=== PATIENT | female | born 1945 | race Caucasian/White ===

== ENCOUNTER 2018-11-26 06:50 | Day surgery (SDC) | payer MEDICARE, OTHER ==
[~2018-11-26] VITALS: Ht 160 cm; Wt 65.8 kg
[~2018-11-26 06:50] MED LIST: AMLODIPINE BESY10 MG PO; FISH OIL 1,0001 EAC2 NG; K-TAB ER20 MEQ PO; METOPROLOL SUC200 MG PO; TRIAMTERENE-HC1 EAC3 PO; VITAMIN D1000 UNIT PO
--- NOTE | 2018-11-26 08:18 | NUR ---
PT IS SALINE LOCKED AND TAKEN TO [facility] FOR IMAGING.
--- NOTE | 2018-11-26 11:06 | NUR ---
PATIENT RETURNS FROM IMAGING. IV RECONNECTED. FAMILY @ BS. CALL LIGHT W/IN REACH.
--- NOTE | 2018-11-26 14:15 | NUR ---
11/26/18 1414 Kait Umanzor 1407- PT ARRIVES TO PACU FROM OR ON 6 L VIA MASK WITH SATS 100%. PT REACTIVE TO VERBAL STIMULUS. JESSICA DRAIN IN PLACE. SURGICAL DRESSING C/D/I ON LEFT BREAST/CHEST. RESP EVEN AND UNLABORED. 1410- VSS. RESP EVEN AND UNLABORED. SATS 100% ON 6 L VIA MASK.
[2018-11-26] MEDS ORDERED: MAPAP325 MG PO (14:41)
[2018-11-26] MEDS ORDERED: OXYCODON-ACETA1 EAC2 PO (14:41)
[2018-11-26] MEDS ORDERED: IBUPROFEN600 MG PO (14:42)
--- NOTE | 2018-11-26 14:58 | NUR ---
PT IS BACK TO DS FROM PACU. SHE IS DROWSY, BUT IS QUICK TO RESPOND WHEN SPOKEN TOO. FAMILY IS AT THE BEDSIDE. CALL LIGHT WITHIN REACH. PT DENIES ANY PAIN/NAUSEA AT THIS TIME. NO ADDITIONAL NEEDS AT THIS TIME.
--- NOTE | 2018-11-26 16:10 | NUR ---
1605: PATIENT ASSISTED OOB. PATIENT C/O SIGNIFICANT DIZZINESS. PATIENT SAT BACK DOWN ON EDGE OF BED AND WAITED FOR DIZZINESS TO IMPROVE. PATIENT STOOD AT BEDSIDE AGAIN AND CONTINUED TO HAVE SIGNIFICANT DIZZINESS. PATIENT UNSURE IF SHE COULD MAKE IT TO BATHROOM. PATIENT LAID BACK DOWN IN BED. BEDSIDE COMMODE BROUGHT TO PATIENT'S ROOM. PATIENT ASSISTED TO COMMODE. VOID WITHOUT DIFFICULTY. PATIENT ASSISTED BACK TO BED. SCDs REPLACED. CALL LIGHT WITHIN REACH. FAMILY AT BEDSIDE.
--- NOTE | 2018-11-26 16:53 | NUR ---
PT REPORTS THE PAIN IN HER BREAST IS MORE OF A BURING SENSATION, THE THROBBING HAS IMPROVED. FAMILY IS AT THE BEDSIDE. CALL LIGHT WITHIN REACH. NO ADDITIONAL NEEDS AT THIS TIME.
--- NOTE | 2018-11-26 17:53 | NUR ---
PT INDICATES THAT SHE WOULD LIKE TO GO HOME. SHE IS ASSISTED IN DRESSING, PT AND HER DAUGHTER ARE SHOWN HOW TO EMPTY THE DRAIN. PT IS GIVEN VERBAL DC INSTRUCTIONS WITH DAUGHTER AND PRESENT. ALL 3 VERBAL UNDERSTANDING. BRIAN TOTH RN TAKES THE PT OUT IN A WHEELCHAIR.
--- NOTE | 2018-11-27 12:09 | OR ---
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 POSTOPERATIVE DIAGNOSES: 1. 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 2. [place] lymph node biopsy x2, negative for metastatic carcinoma. PROCEDURES PERFORMED: 1. Injection of methylene blue for sentinel lymph node identification. 2. Left deep axillary lymph node biopsies x2. 3. Complex left partial mastectomy with preoperative marker ( ultrasound guided) 4. Oncoplastic closure including partial excision of redundant skin. 5. Excision (separate incision) of additional breast cancer ( medial breast.) ANESTHESIA: General LMA; Praneeth Casey CRNA. DRAIN: 7 mm Dusty. INDICATION: This 73-year-old white woman is a patient of Dr. Tita Kahn, and has been diagnosed with infiltrating ductal carcinoma of the left breast. She has a rather extensive family history of breast cancer in several family members and has been tested for BRCA1 and 2 genetic mutations. She is found to be negative in that regard. Biopsies confirmed infiltrating ductal carcinoma in three separate areas, all in the same quadrant of the left medial inferior aspect. The patient has a strong desire to maintain a breast conservation approach if possible. We have discussed the various approaches to management of her breast cancer and they are at least three distinct lesions all in the same quadrant for which quadrantectomy is an option anticipating postoperative radiation therapy as well. She has no clinical evidence of metastatic disease. The lesions in question are generally palpable, though the lesion in the medial aspect is marked with a clip and is not palpable. Preoperative ultrasonographic interrogation of breast by the radiologist is allowed for delineation of the site in question with skin marker. Electronically Signed By: SHONDA REID MD 11/27/18 1209 PATIENT NAME: JACKIE GALLO OPERATIVE REPORT DATE OF : 41 REPORT #: [id number] PHYSICIAN: SHONDA REID MD PCP: TITA KAHN MD REPORT IS CONFIDENTIAL AND NOT TO BE RELEASED WITHOUT AUTHORIZATION [facility] [address], [place] [address] Signed The patient is to undergo a partial mastectomy, sentinel lymph node biopsy, and excision of additional lesion in the same quadrant of the breast and oncoplastic closure as able. The patient and her family understand the risks of bleeding, infection, recurrent disease, failure to cure the problem, need for additional treatment and cosmetic deformity. Understanding this they wished to proceed. FINDINGS: [place] lymph node uptake in the left axilla was good. Two sentinel lymph nodes were excised, one that incorporated both radionuclide and dye, the other with radionuclide only. Frozen pathology by Dr. Kolton Treviño showed them to have no evidence of metastatic disease. As regard to the breast, the areas in question were in the medial inferior aspect. Wide local excision was undertaken of the breast tissue near the areola incorporating the palpable lesions, which were marked with sutures for pathologic identification. The excised specimens were radiographed and evaluated by ultrasound confirming the suspicious nodules to be within the resected specimen. Redundant skin required excision for oncoplastic closure and parenchymal reorganization to close a sizable defect. Through a separate incision, the lesion medially that was designated by a clip was excised widely as well and confirmed in specimen radiograph as well. DESCRIPTION OF PROCEDURE: The patient was brought to the operating room having been received from the radiology suite for sentinel lymph node identification. She was given a general LMA type anesthetic. Preoperative antibiotics were given and sequential compression device stockings used. Heparin was administered subcutaneously. Injection with 1 mL of methylene blue in the left periareolar area was undertaken. The breast, chest wall, and axilla were then prepared with spray of Betadine solution and draped sterilely. Interrogation of the left axilla with the C-Trak gamma probe showed high uptake in the area just lateral to the pectoralis muscle high in the axilla. A transverse incision was made directly over the area. Dissection carried through the subcutaneous tissue in the standard way using electrocautery and blunt dissection. Using the gamma probe as a guide, dissection was carried down to the chest wall, where a dye avid lymph node was identified. This was dissected free and small clips were used as necessary for lymphatic connections to it. It was excised and found to be "hot" on the gamma probe and with good uptake of dye. This was passed as sentinel lymph node #1. Subsequently it was reported as negative for metastatic disease. Additional interrogation of the axilla showed another lymph node, this one slightly larger at about 2 cm. It had no dye uptake but was strongly avid for radionuclide. It too was excised in a similar way and ultimately found to be negative on frozen pathology for metastatic disease. The biopsy Electronically Signed By: SHONDA REID MD 11/27/18 1209 PATIENT NAME: JACKIE GALLO OPERATIVE REPORT DATE OF : 41 REPORT #: [id number] PHYSICIAN: SHONDA REID MD PCP: TITA KAHN MD REPORT IS CONFIDENTIAL AND NOT TO BE RELEASED WITHOUT AUTHORIZATION [address] [address] Signed cavity was packed with gauze and attention turned towards excision of the primary tumor. A palpable lesion was noted a few centimeters from the areolar margin and the area in question had been marked by the radiologist preoperatively with ultrasonographic guidance. I witnessed this in the ultrasound suite as well. A palpable lesion was noted just at the edge of the areolar margin as well. The more medial lesion was marked with a marker, but had no palpable mass in that area. A curvilinear incision was made on the circumareolar margin medially and a flap elevated in the medial direction. Immediately noted was a lesion in question beneath the areolar area or at least on the edge of the areola and this was marked with silk suture. Special care was taken to maintain a negative margin on this excision. Dissection was carried medially beneath the areola and superiorly, inferiorly, and ultimately deeply. Dissection was carried towards the 2nd palpable lesion, which was a few centimeters away. This was larger and looked somewhat violaceous upon elevating the skin flap. The skin was elevated and included dermis and epidermis only so as to maintain a negative margin. I have no question that the margin is negative though it certainly would be closed based on gross inspection. Wide deep excision was undertaken of the breast parenchyma. Irrigation was undertaken. Hemostasis was assured with electrocautery. Several areas had been secured with 0 Vicryl ties. Parenchymal reapproximation was deemed advisable with possible stones to provide an oncoplastic closure. Using 2-0 Vicryl, medial and lateral parenchymal pedicles were reapproximated. Given her redundant breast tissue and so forth, more extensive mobilization was not required. This did necessitate excision of a fair amount of skin, which had overlaying the excision to begin with. This allowed for deep dermal reapproximation of the skin edges with extension of the incision medially. Though there does remain some cosmetic deformity, it is far better than the resultant defect noted previously. The medial lesion, which was nonpalpable but noted to be marked by a clip and designated by a marker, was then incised through a separate incision. Dissection was carried through the parenchyma with wide resection undertaken. Specimen was sent for specimen radiograph confirming that the clip was in the center portion of the excised tissue. The parenchyma was reapproximated with interrupted 2-0 Vicryl and skin closed with running subcuticular 3-0 Vicryl. Skin was closed in the largest resection of the central medial breast with 3-0 Vicryl as well. Steri-Strips were applied to all of the wounds. A radiologist confirmed that all of the solid lesions from the ultrasound were included in the excised specimen and the parenchyma that had been marked was also excised. Attention was turned towards the axilla. There was no sign of bleeding. The wound was closed in layers with interrupted 2-0 Vicryl and Steri-Strips were applied there as well. Mepilex silver sponge dressing was applied as was an OpSite. The patient was Electronically Signed By: SHONDA REID MD 11/27/18 1209 PATIENT NAME: JACKIE GALLO OPERATIVE REPORT DATE OF : 41 REPORT #: [id number] PHYSICIAN: SHONDA REID MD PCP: TITA KAHN MD REPORT IS CONFIDENTIAL AND NOT TO BE RELEASED WITHOUT AUTHORIZATION [address] [place] [address] Signed ultimately extubated and transported to recovery in good condition. Not mentioned previously was placement of a 7 mm drain through an inframammary incision to drain the largest partial mastectomy wound deeply. It seem not to have too much drainage at that point. MD TRANG Gordillo/JOSEPHL /[id number] cc: MD Dr. Dariel Tejeda Copies: TITA KAHN MD ~ Electronically Signed By: SHONDA REID MD 11/27/18 1209 PATIENT NAME: SABINOJACKIE JACOBS OPERATIVE REPORT DATE OF : 41 REPORT #: [id number] PHYSICIAN: SHONDA REID MD PCP: TITA KAHN MD REPORT IS CONFIDENTIAL AND NOT TO BE RELEASED WITHOUT AUTHORIZATION
== END 2018-11-26 17:50 | disposition home or self-care (01) ==
LOC: DS 06:50 → NUC 08:00 → DS 08:00 → EDSTATUS 08:00 → DS 17:50
PROVIDERS: Surgery
PROC: 0HBU0ZZ Excision of Left Breast, Open Approach (ICD-10-PCS; principal; 2018-11-26 09:30)
PROC: 07B60ZX Excision of Left Axillary Lymphatic, Open Approach, Diagnostic (ICD-10-PCS; 2018-11-26 09:30)
DX: C50.312 Malignant neoplasm of lower-inner quadrant of left female breast (principal); C50.812 Malignant neoplasm of overlapping sites of left female breast; I10 Essential (primary) hypertension; Z88.0 Allergy status to penicillin; Z91.040 Latex allergy status; Z79.899 Other long term (current) drug therapy
CPT/HCPCS: 00404; 76098; 76642; 78195; 88305; 88307; 88341; 88342; 88377; A9541; J0131; J1100; J1644; J2405; J2704; J2765; J3010; J7120

== ENCOUNTER 2020-12-16 10:04 | Inpatient (IN) | payer MEDICARE, OTHER ==
[~2020-12-16] VITALS: Ht 160 cm; Wt 67.6 kg
[~2020-12-16 10:04] MED LIST changes: -FISH OIL 1,0001 EAC2 NG; +FISH OIL 1,0001 EAC2 PO; +IBUPROFEN600 MG PO; -K-TAB ER20 MEQ PO; +MAPAP325 MG PO; +OXYCODON-ACETA1 EAC2 PO; +POTASSIUM GLUCO99 MG PO; -VITAMIN D1000 UNIT PO; +VITAMIN D325 MCG PO
[2020-12-16] MEDS ORDERED: GLIPIZIDE ER2.5 MG PO (10:38)
[2020-12-16] MEDS ORDERED: KEFLEX750 MG PO (10:39)
[2020-12-16] MEDS ORDERED: PYRIDIUM200 MG PO (10:40)
--- NOTE | 2020-12-16 14:25 | NUR ---
REPORT RECIEVED FROM SAUNDRA WILSON NURSE. COVID TEST RESULTS ARE PENDING.
[2020-12-16] MEDS ORDERED: CEPHALEXIN500 MG PO (14:29)
[2020-12-16] MEDS ORDERED: AMLODIPINE BESYL5 MG PO (14:31)
[2020-12-16] MEDS ORDERED: TRIAMTERENE-HC1 EAC1 PO (14:32)
--- NOTE | 2020-12-16 15:15 | NUR ---
PATIENT ADMISSION STARTED. PATIENT RESTING IN BED, DENIES PAIN OR NAUSEA, HAS ORDERED DINNER. SPOUSE IN ROOM WITH PATIENT.
--- NOTE | 2020-12-16 15:59 | NUR ---
ASSESSMENT COMPLETED. PATIENT SITTING UP IN BED WITH SPOUSE AT THE BEDSIDE. PATIENT DENIES PAIN AT THIS TIME. WARM BLANKET GIVEN. 0.9 RUNNING 100ML/HR IN RIGHT FOREARM IV SITE. CALL LIGHT WITHIN REACH. PATIENT DENIES FURTHER NEEDS AT THIS TIME.
--- NOTE | 2020-12-16 16:01 | NUR ---
PATIENT WALKING IN HALLS WITH PHYSICAL THERAPY.
[2020-12-16] MEDS ORDERED: [UNRECOGNIZED DRUG - OTHER] PO (16:44)
[2020-12-16] MEDS ORDERED: HYLAND'S LEG CRAMPS PO (16:44)
--- NOTE | 2020-12-16 16:45 | NUR ---
MED REC COMPLETE
--- NOTE | 2020-12-16 17:35 | NUR ---
Sitting up in bed. Has voided X1. Denies other needs at this time. Call light in reach, bed rails up X2.
--- NOTE | 2020-12-16 17:57 | NUR ---
Flu swab collected and sent to lab. TOlerated well.
--- NOTE | 2020-12-16 18:18 | NUR ---
Patient admitted from the emergency department around 1530. Worked with physical therapy and has been cleared to be independent in the room, SBA when walking in the halls. Last glucose check was 128, no insulin needed given. Has 0.9 @100ml/hr through IV site in right forearm.
--- NOTE | 2020-12-16 19:10 | NUR ---
SHIFT REPORT RECEIVED TAMMIE MARX RN. PT RESTING IN BED, WATCHING TV. NO NEEDS AT THIS TIME. CALL LIGHT IN REACH.
--- NOTE | 2020-12-16 20:55 | NUR ---
IN TO GET VITALS, PT RECENTLY VOIDED, FRESH ICE WATER PROVIDED AT THIS TIME, NO FURTHER NEEDS AT THIS TIME
--- NOTE | 2020-12-16 21:07 | NUR ---
ASSESSMENT COMPLETED. CBG 111, NO COVERAGE REQUIRED. GCS 15, A&0 X4. LUNGS CLEAR, HEART TONES REGULAR. ABD SOFT, NONTENDER, PT STATES NORMAL, BOWEL TONES ACTIVE. CMS INTACT. IV WNL, CDI, FLUSHED WELL. SCHEDULED MEDS PROVIDED. PT DENIES PAIN, BURNING OR URGENCY WITH URINATION AT THIS TIME. URINE IS SUMEET AND CLEAR. NO OTHER NEEDS AT THIS TIME. CALL LIGHT IN REACH.
--- NOTE | 2020-12-16 22:46 | NUR ---
SCHEDULED MED PROVIDED. PT TOLERATED WELL. SNACK PROVIDED. NO OTHER NEEDS AT THIS TIME. CALL LIGHT IN REACH.
--- NOTE | 2020-12-17 00:05 | NUR ---
NEW BAG OF IV FLUIDS PROVIDED. NO OTHER NEEDS AT THIS TIME. CALL LIGHT IN REACH.
--- NOTE | 2020-12-17 01:37 | NUR ---
PT RESTING IN BED, EYES CLOSED. RR EVEN, UNLABORED. CALL LIGHT IN REACH.
--- NOTE | 2020-12-17 02:08 | NUR ---
ASSESSMENT, VS AND I&O COMPLETED. GCS 15, A&O X4. LUNGS CLEAR, HEART TONES REGULAR. ABD SOFT, NONTENDER, PT STATES NORMAL, BOWEL TONES ACTIVE. CMS INTACT. NO EDEMA NOTED. PT STATES SHE FEELS "MORE MENTALLY CLEAR". NO OTHER NEEDS AT THIS TIME. CALL LIGHT IN REACH.
--- NOTE | 2020-12-17 05:40 | NUR ---
PT UP TO BR AND BACK TO BED. VS AND I&O COMPLETED. IV WNL, INFUSING PER ORDER. NO OTHER NEEDS AT THIS TIME. CALL LIGHT IN REACH.
--- NOTE | 2020-12-17 07:05 | NUR ---
Report from Michelle Elliott RN. Patient lying on right side, eyes closed with respirations even and unlabored. Allowed to rest. Call light in reach, bed rails up X2.
--- NOTE | 2020-12-17 07:36 | NUR ---
REPORT RECIEVED FROM LOU GILLIAM. PATIENT APPEARS ASLEEP IN BED. CALL LIGHT WITHIN REACH. WILL CONTINUE TO MONITOR.
--- NOTE | 2020-12-17 08:51 | NUR ---
Assessment completed. Sitting up in recliner. Ate breakfast without difficulty. Denies pain. States she is feeling better. AM medications administered. Takes without difficulty. Call light in reach, bed rails up X2.
--- NOTE | 2020-12-17 09:11 | NUR ---
ASSESSMENT COMPLETED. PATIENT SITTING UP IN CHAIR EATING BREAKFAST. DENIES PAIN OR TROUBLE WITH URINATION. STABLE WHEN UP. MORNING MEDICATIONS ADMINISTERED. CALL LIGHT AND PERSONAL BELONGINGS WITHIN REACH. DENIES FURTHER NEEDS AT THIS TIME.
--- NOTE | 2020-12-17 09:48 | NUR ---
PATIENT AWAKE IN CHAIR, VITALS AND I&OS CHARTED. CALLLIGHT IN REACH
--- NOTE | 2020-12-17 09:58 | NUR ---
PATIENT POTASSIUM LEVEL STILL SLIGHTLY DECREASED. PO POTASSIUM TABLETS ORDERED AND ADMINISTERED. PATIENT SITTING UP IN THE CHAIR WITH PERSONAL BELONGINGS WITHIN REACH. CALL LIGHT WITHIN REACH. DENIES NEEDS AT THIS TIME.
--- NOTE | 2020-12-17 10:57 | NUR ---
PATIENT SITTING UP IN CHAIR WITH SPOUSE AT THE BEDSIDE. CALL LIGHT WITHIN REACH. PATIENT DENIES FURTHER NEEDS AT THIS TIME.
--- NOTE | 2020-12-17 11:38 | NUR ---
Sitting in bed, visiting with spouse. Denies needs. GLucose obtained. Call light in reach, bed rails up X2.
[2020-12-17] MEDS ORDERED: METOPROLOL SUCC50 MG PO (12:29)
[2020-12-17] MEDS ORDERED: ONDANSETRON ODT8 MG PO (12:30)
== END 2020-12-17 13:54 | disposition home or self-care (01) | DRG 641 ==
LOC: ED 10:04 → MS 14:16
PROVIDERS: ADMIT Student in an Organized Health Care Education/Training Program; ATTEND Student in an Organized Health Care Education/Training Program
DX: E87.1 Hypo-osmolality and hyponatremia (principal); Z20.822 Contact with and (suspected) exposure to COVID-19; I10 Essential (primary) hypertension; E11.9 Type 2 diabetes mellitus without complications; R30.0 Dysuria; R00.1 Bradycardia, unspecified; T50.2X5A Adverse effect of carbonic-anhydrase inhibitors, benzothiadiazides and other diuretics, initial encounter; Z79.899 Other long term (current) drug therapy; Z79.84 Long term (current) use of oral hypoglycemic drugs; Z88.1 Allergy status to other antibiotic agents; Z88.0 Allergy status to penicillin; Z91.040 Latex allergy status
CPT/HCPCS: 36415; 80048; 80053; 81001; 83735; 84295; 84300; 85025; 85651; 87502; 96374; 96375; 97161; 97165; 99285-25; C9803; J1650; J2405; J3480; J7030; U0003

== ENCOUNTER 2021-06-02 05:55 | Observation (INO) | payer MEDICARE, OTHER ==
[~2021-06-02] VITALS: Ht 160 cm; Wt 62.0 kg
[~2021-06-02 05:55] MED LIST changes: +AMLODIPINE BESYL5 MG PO; +CEPHALEXIN500 MG PO; +GLIPIZIDE ER2.5 MG PO; +HYLAND'S LEG CRAMPS PO; +KEFLEX750 MG PO; +METOPROLOL SUCC50 MG PO; +ONDANSETRON ODT8 MG PO; +PYRIDIUM200 MG PO; +TRIAMTERENE-HC1 EAC1 PO; +[UNRECOGNIZED DRUG - OTHER] PO
[2021-06-02] MEDS ORDERED: NORVASC5 MG PO (06:22)
--- NOTE | 2021-06-02 09:35 | NUR ---
06/02/21 0935 Nilda Sweeney 0931- PT ARRIVES TO PACU NONAROUSABLE TO NOXIOUS STIMULI WITH OPA IN PLACE. RESP EVEN AND UNLABORED. OXYGEN SAT HIGH 90'S TO 100% ON 10L VIA MASK.
--- NOTE | 2021-06-02 10:37 | NUR ---
LE 1018 PT ARRIVED BACK TO ROOM #5 DROWSY ON STRETCHER. EASILY AROUSES TO VERBAL STIMULATION, APPROPRIATELY ANSWERS COMMANDS. PT DENIES PAIN OR NAUSEA. CALL LIGHT WITHIN REACH.
--- NOTE | 2021-06-02 12:01 | NUR ---
PT UP TO BEDSIDE COMMODE WITH 2 RN ASSIST. PROVIDED PT WITH WATER AND APPLESAUCE. PT APPEARS COMFORTABLE IN BED, DENIES PAIN OR NAUSEA. PT STATES SHE FEELS DIZZINESS WITH MOVEMENT BUT STATES IT HAPPENS ALSO AT HOME. SPOUSE AT BEDSIDE. CALL LIGHT WITHIN REACH.
--- NOTE | 2021-06-02 12:53 | NUR ---
PT APPEARED COMFORTABLE IN BED. SHE DENIES PAIN AND NAUSEA. JACQUES FROM CANCER CLINIC AT BEDSIDE FITTING PATIENT FOR A DEEPA. IN ROOM WITH PATIENT. CALL LIGHT WITHIN REACH.
--- NOTE | 2021-06-02 13:30 | NUR ---
PT TRANSFERED TO ROOM 107. PT TRANSFERED HERSELF TO MED SURG STRETCHER. TOOK ALL PATIENT'S BELONGINGS TO ROOM. STAYED WITH PATIENT. GAVE BEDSIDE REPORT. LOOKED AT PATIENT'S DRESSING WITH MED SURG NURSE. DRESSING WAS CLEAN, DRY, AND INTACT.
--- NOTE | 2021-06-02 14:30 | NUR ---
PT. ARRIVED VIA STRETCHER AND REPORT RECEIVED FROM CHARGE NURSE. PT. IS ALERT AND ORIENTED. PRESENT. IV SITE WNL AND FLUSHES WELL. CPOX IN PLACE AND 02 SAT IS 100%. LEFT CHEST DRESSING IS DRY AND INTACT WITH SMALL AMOUNT OF SANGUINOUS SHADOWING. JESSICA DRAINS X2 ARE PATENT AND DRAINING SANGUINOUS. PT. VOIDING AND AMBULATING WITH SBA. SCDS IN PLACE AND PT. TOLERATING SMALL SIPS OF WATER. LEFT RESTING WITH CALL LIGHT IN REACH.
--- NOTE | 2021-06-02 15:44 | NUR ---
ROUNDING ON PT. SHE DENIES PAIN. 02 SAT. IS 98% ON RA AND HR IS 58. PT. BROUGHT WARM BLANKET. TOLERATING PO INTAKE WELL. PT. LEFT RESTING WITH CALL LIGHT IN REACH.
--- NOTE | 2021-06-02 15:50 | NUR ---
Pt lives in [place] in a 1 story home with her spouse, Hernán. She does not use DME, but has a walking stick. She has a supportive famil y, daughters plan to stay with her and her retired . Financial ly stable. Denies needs to go home and plan on dc to home when clear- ed by Dr. Guzman to assist.
--- NOTE | 2021-06-02 17:05 | NUR ---
PT. UP TO THE BATHROOM WITH SBA AND TOLERATED WELL. PT. DENIES FURTHER NEED.
--- NOTE | 2021-06-02 19:20 | NUR ---
SHIFT REPORT RECEIVED FROM DAYSHIFT RN PAUL AT BEDSIDE. pt AWAKE AND RESTING IN BED, ON RA. CPOX IN PLACE, SPO2 SAT 90'S, HR WNL. pt UP SBA TO VOID AND BACK TO BED. ACTICOAT IN PLACE OVER LEFT CHEST, SCANT SHADOWING IN PLACE. SEROSANGINEOUS IN COLOR. JESSICA DRAINS X2 ALSO IN PLACE, SHADOWING EXPANDED BEYOND CURRENT OUTLINE, WILL CONTINUE TO MONITOR. NO NEEDS, AT BEDSIDE. CALL LIGHT IN REACH.
--- NOTE | 2021-06-02 22:15 | NUR ---
ASSESSMENT COMPLETE, SCHEDULED MEDS GIVEN. pt DENIES PAIN AND NAUSEA. IV FLUIDS INFUSING PER MD ORDERS. IV SITE WNL AND FLUSHES EASILY. NO CHANGE TO ACTICOAT OR JESSICA DRAIN DRESSINGS, WILL MONITOR. DR REID UPDATED ON pt AND JESSICA DRAIN X2 OUTPUTS, NO NEW ORDERS. WILL CONTINUE TO MONITOR. IN ROOM, CALL LIGHT IN REACH.
--- NOTE | 2021-06-03 00:11 | NUR ---
ROUNDED ON pt, pt AWAKE AND RESTING IN BED. ON RA, RR EVEN AND UNLABORED, HELMET HAT SWEATBAND PUNCHER ZACKARY IN ROOM AND ASSISTING pt TO BATHROOM. NO NEEDS VERBALIZED AT THIS TIME.
--- NOTE | 2021-06-03 00:18 | NUR ---
PT IS UP TO VOID AT THIS TIME, THEN BACK TO BED, SBA WITH IV POLE, NO FURTHER NEEDS AT THIS TIME
--- NOTE | 2021-06-03 01:51 | NUR ---
ASSESSMENT COMPLETE, NO NEW CHANGES OR CONCERNS. VSS, pt ON RA. CPOX IN PLACE, pt DENIES PAIN AND NAUSEA. IV FLUIDS INFUSING PER MD ORDERS, IV SITE WNL. pt DENIES ADDITIONAL NEEDS, CALL LIGHT IN REACH. NO CHANGE TO DRESSING OR JESSICA DRESSING, WILL CONTINUE TO MONITOR. pt EDUCATED ON JESSICA DRAIN EMPTYING AND CARE, WILL CONTINUE TO EDUCATE.
--- NOTE | 2021-06-03 02:00 | NUR ---
VITALS TAKEN, I&Os DONE, PT UP TO THE TOILET SBA, BACK TO BED, SCDS BAKC IN PLACE, ICE WATER FILLED, NO FURTHER NEEDS
--- NOTE | 2021-06-03 06:15 | NUR ---
PTs CONTACTING STAFF, THIS ROTARY ENGINE ASSEMBLER FOUND PT ON TOILET, SPOTS OF URINE ON THE FLOOR, PT IS CONFUSED, RN INFORMED RIGHT AWAY, GOT PT NEW MESH UNDERPANTS AND DANIA PAD, PT BACK TO BED, VITALS DONE AT THIS TIME, FRESH ICE WATER GIVEN, PT TEARFUL, TISSUES PROVIDED, NO FURTHER NEEDS AT THIS TIME
--- NOTE | 2021-06-03 06:24 | NUR ---
INFORMED BY FREEDOM RAYMUNDO, pt REPORTS FEELING CONFUSED. pt FOUND IN BATHROOM AND VOIDING. PER , pt WOKE UP CONFUSED AND WAS TRYING TO VOID IN TIOLET. pt ASSESSED, pt FULLY ORIENTED AT THIS TIME. pt STATES, "I JUST WOKE UP AND HAD TO GO PEE". pt BACK TO BED, PRN ACCUCHECK RESULT OF 173. PRN NAUSEA MEDS GIVEN, SEE EMAR FOR NAUSEA. PRN TYLENOL HELD D/T NAUSEA, pt DENIES PAIN. NO NEW CHANGES TO JESSICA DRAIN DRESSING OR ACTICOAT DRESSING. HYPO SPLASHERLOU DOYLE.
--- NOTE | 2021-06-03 06:50 | NUR ---
DR REID UPDATED ON pt'S RECENT CONFUSION, INCISION DRESSINGS, AND BLOOD SUGARS DURING THE NIGHT. NO NEW ORDERS AT THIS TIME.
--- NOTE | 2021-06-03 08:30 | NUR ---
REPORT RECEIVED FROM NIGHT RN AND PT. CARE RESUMED. PT. IS ALERT AND ORIENTED. SHE APPEARS ANXIOUS AND STATES SHE WAS COFUSED LAST NIGHT AND IT SCARED HER. PT. REASSURED. JESSICA #1 GAUZE DRESSING HAS SHADOWING THROUGHOUT. JESSICA SITES X2 ARE PATENT AND DRAINING SERISANGUINOUS FLUID. ACTICOAT DRESSING HAS SMALL AMOUNT OF SHADOWING THAT IS UNCHANGED SINCE YESTERDAY. IV SITE WNL AND FLUSHES WELL. PT. ENCOURAGED TO WALK AFTER BREAKFAST. PT. LEFT RESTING WITH CALL LIGHT IN REACH.
[2021-06-03] MEDS ORDERED: GLIPIZIDE ER2.5 MG PO (10:16)
[2021-06-03] MEDS ORDERED: ACETAMINOPHEN500 MG PO (10:25)
[2021-06-03] MEDS ORDERED: MOTRIN IB200 MG PO (10:26)
[2021-06-03] MEDS ORDERED: ENDOCET 7.5-321 EACH PO (10:27)
--- NOTE | 2021-06-03 10:35 | OR ---
[facility] [address] [place], [place] [address] Signed DATE OF OPERATION: 06/02/2021 SURGEON: Shonda Reid MD PREOPERATIVE DIAGNOSIS: Recurrent left breast carcinoma. POSTOPERATIVE DIAGNOSIS: Recurrent left breast carcinoma. PROCEDURES: 1. Injection of methylene blue for sentinel lymph node identification. 2. Left modified radical mastectomy (total mastectomy with axillary dissection). ANESTHESIA: General LMA; Shonda Esteban CRNA INDICATIONS: This is a 76-year-old white woman is a patient of Dr. Tita Kahn. In 2019, she underwent excision in the left medial breast of an infiltrating ductal carcinoma with separate foci, but in the same quadrant, which included sentinel lymph node biopsy. Pathology showed infiltrating ductal carcinoma with at least 2 lesions and some ductal carcinoma in situ also identified, but with negative margins. The lesion was ER/NJ positive. 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 She has an extensive family history of breast cancer including their mother, 2 sisters, and a maternal aunt. BRCA testing was obtained that was negative. The patient had agreed to undergo postoperative radiation therapy as part of her initial treatment, but later changed her mind and would not do so. She additionally declined antiestrogen therapy as outlined by Dr. Ceja. In the meantime, she has since developed abnormalities of the left breast for which biopsies have confirmed recurrent infiltrating ductal carcinoma. Appears to be two lesions and possibly more. Two lesions were biopsied and they were in separate quadrants of the breast. On that basis, I have recommended left total mastectomy with repeat sentinel lymph node biopsy, possibly axillary dissection if 2 more sentinel lymph nodes were found to be positive or if sentinel lymph node identification, the identification cannot be assured. The patient understands the risks of bleeding, infection, cosmetic deformity, arm swelling, and other unforeseen complications related to surgery and wished to proceed. Electronically Signed By: SHONDA REID MD 06/03/21 1035 PATIENT NAME: JACKIE GALLO OPERATIVE REPORT DATE OF : 41 REPORT #: [id number] PHYSICIAN: SHONDA REID MD PCP: TITA KAHN MD REPORT IS CONFIDENTIAL AND NOT TO BE RELEASED WITHOUT AUTHORIZATION [facility] [address] [place], [place] [address] Signed FINDINGS: Upon injection of the methylene blue dye in the subepithelial space in the periareolar area, there was marked good arborization of the subdermal lymphatics. This is often indicative of lymphatic congestion. Notably, axillary inspection showed no sign of uptake of methylene blue dye to axillary lymph nodes and on that basis, completion axillary dissection was undertaken. DESCRIPTION OF PROCEDURE: The patient was brought to the operating room, given a general anesthetic by LMA technique. Preoperative antibiotic Ancef was given. Sequential compression device stockings were used and heparin subcutaneously administered. 2 mL of methylene blue dye was injected in the subepithelial space in the upper outer aspect of the left areola. Marked arborization of the dye within the lymphatics was noted, essentially taking up most of the central breast. Photograph was taken. The previous scar from prior surgery was in the medial aspect of the left breast. The chest, breast, and upper axillary area were prepared with a Betadine based solution and draped sterilely. A curvilinear incision was made including excision of the nipple-areolar complex. Superior and inferior flaps were developed sharply and with electrocautery. The breast was rather large in its extent. Once flaps were developed. The breast was excised in the medial to lateral direction using electrocautery. Larger perforating vessels were secured with stick tie sutures or clips as necessary. Upon approaching the lateral aspect of the pectoralis muscle, the clavipectoral fascia was incised. Meticulous dissection through the axillary area showed no evidence of uptake of methylene blue dye teniae axillary tissue. There was no sign of lymphatic trail or anything of that sort. Dissection was taken superiorly up to the extent of the axillary vein, maintaining an intention to provide excision of a sentinel lymph node or more and frozen pathology, but despite extensive efforts to do so, there was no such finding and no axillary lymph nodes with dye could be identified. There were several enlarged lymph nodes proper. They were not particularly hard, but enlarged nevertheless. On that basis, axillary dissection was undertaken. The extent of dissection was inferior to the subclavian vein lateral to the long thoracic neurovascular bundle and superficial to the thoracodorsal neurovascular bundle, excising the tissue in continuity with the breast tissue in the axillary tail of Aguirre. The axilla was marked with a single Vicryl suture. Dissection through the axillary tissue once excised continued to show no evidence of methylene blue uptake, but complete dissipation of the methylene blue in the subdermal space. I suspect lymphatic congestion was responsible for this finding. Irrigation was undertaken with sterile water in the chest wall and the axilla. There was no sign of untoward bleeding. Two separate stab incision 10 mm flat Dusty drains were placed beneath the flaps and one in the axilla. They were secured to the skin with nylon suture. The flaps were quite viable. The flaps were reapproximated with interrupted 2-0 Vicryl in deep dermal layer and a running subcuticular 3-0 Vicryl for the skin. Steri-Strips were applied as was an Electronically Signed By: SHONDA REID MD 06/03/21 1035 PATIENT NAME: JACKIE GALLO REYNALDO OPERATIVE REPORT DATE OF : 41 REPORT #: [id number] PHYSICIAN: SHONDA REID MD PCP: TITA KAHN MD REPORT IS CONFIDENTIAL AND NOT TO BE RELEASED WITHOUT AUTHORIZATION [facility] [address] [place] [id number] Signed Acticoat dressing. Gauze was applied to the exit sites of the drains, which were attached to bulb suction and OpSite used to secure the drains to the abdominal wall. Blood loss in aggregate was about 100 mL. Sponge, needle, and instrument counts reported as correct x3. MD TRANG Gordillo/MODL /[id number] cc: MD Andrews Tejeda MD Copies: TITA KAHN MD, ROBERT C MD ~ Electronically Signed By: SHONDA REID MD 06/03/21 1035 PATIENT NAME: SABINOJACKIE KIRBY OPERATIVE REPORT DATE OF : 41 REPORT #: [id number] PHYSICIAN: SHONDA REID MD PCP: TITA KAHN MD REPORT IS CONFIDENTIAL AND NOT TO BE RELEASED WITHOUT AUTHORIZATION
--- NOTE | 2021-06-03 11:42 | NUR ---
ALL DISCHARGE INSTRUCTIONS REVIEWED WITH PT. AND QUESTIONS ASNWERED. PT. DENIES PAIN AND VITALS STABLE. IV REMOVED BY CHARGE NURSE WITH CATH INTACT AND EDUCATION PROVIDED ON IV. LEFT VIA WHEELCHAIR WITH ALL BELONGINGS AND CHARGE NURSE.
--- NOTE | 2021-06-10 17:06 | PATH ---
[facility] [address] [facility] [place], [place] [address] Signed SPECIMEN(S): A LEFT BREAST AND AXILLARY CONTENTS SPECIMEN SOURCE: A. LEFT BREAST AND AXILLARY CONTENTS CLINICAL HISTORY: Left breast cancer FINAL PATHOLOGIC DIAGNOSIS: Breast and axillary contents, left, total mastectomy: - Mucinous carcinoma with the following features: - Tumor focality: Two foci of invasive carcinoma. - Tumor sites: - Focus 1: approximately 4 o'clock. - Focus 2: approximately 3 o'clock. - Histologic type: Mucinous carcinoma. - Histologic grade ([place] histologic score): - Glandular (acinar)/tubular differentiation: Score 3. - Nuclear pleomorphism: Score 2. - Mitotic rate: Score 1. - Overall grade: Grade 2 (total score 6 of 9). - Tumor size: - Focus 1: 15 x 14 x 9 mm. - Focus 2: 16 x 15 x 10 mm. - Ductal carcinoma in situ (DCIS): Present, negative for extensive intraductal component (EIC). - Architectural patterns: Cribriform and micropapillary. - Nuclear grade: Grade 3 (high). - Necrosis: Not identified. - Lobular carcinoma in situ (LCIS): Not identified. - Lymphovascular invasion: Not identified. - Dermal lymphovascular invasion: Not identified. - Microcalcifications: Present in non-neoplastic tissue. - Treatment effect in the breast: No known pre-surgical therapy. - Margins: - Invasive carcinoma: All margins negative for invasive carcinoma. - Greater than 10 mm from superior, inferior, and posterior margins. - Margin status for DCIS: All margins negative for DCIS. PATIENT NAME: JACKIE GALLO PATHOLOGY DATE OF : 41 REPORT #: [id number] PHYSICIAN: [employer] PATHOLOGY PCP: TITA HUBER MD REPORT IS CONFIDENTIAL AND NOT TO BE RELEASED WITHOUT AUTHORIZATION [facility] [address] [place], [place] [address] Signed - Greater than 10 mm from superior, inferior, and posterior margins. - Regional lymph nodes: Regional lymph nodes present (intrammary lymph nodes). - All lymph nodes negative for tumor. - Total number of lymph nodes examined: 2. - Additional findings: Background breast tissue with fibrocystic changes, biopsy site changes in both focus 1 and focus 2. - Breast biomarker studies: Please refer to previously performed studies ([id number]) which were reported as estrogen receptor positive, progesterone receptor positive, Ki-67 proliferation index 5%, and HER2 negative by IHC for both foci. - Pathologic stage classification (pTNM, AJCC 8th edition): mr pT1c pN0. COMMENT: As part of [facility] [employer]' Quality Improvement Program, this case was reviewed by another member of our pathology staff. NAL:cml:C1NR MICROSCOPIC EXAMINATION: Histologic sections of all submitted blocks are examined by light microscopy. A focus of sclerosing adenosis is seen adjacent to the nipple; the benign nature of this lesion is confirmed with retained myoepithelial cell staining with SMMHC and p63 (with appropriately staining controls). These findings, together with the gross examination, support the pathologic diagnosis. GROSS DESCRIPTION: The specimen, labeled "JM," and designated on the requisition "L breast + axillary contents; left breast CA - stitch bowman apex of axilla," is received in formalin and consists of a 1399 g, 24.9 x 22.7 x 6.2 cm mastectomy specimen with attached axillary tail. The specimen is oriented with a payan suture on the axillary tail. On the anterior surface of the specimen is a 22.8 x 10.7 cm payan skin ellipse with a centrally located, payan, 5.4 x 3.9 cm areola and a payan, sunken, 1.3 x 0.7 x 0.2 cm nipple. Just superior to the nipple is an ill-defined, 5.7 x 3.5 cm area of previous blue inking. Additionally the skin ellipse has a red, flat 0.3 x 0.3 cm lesion that is 1.6 cm from the nearest peripheral skin margin, superior. The specimen is inked as follows: Superior aspect of specimen = PATIENT NAME: JACKIE GALLO PATHOLOGY DATE OF : 41 REPORT #: [id number] PHYSICIAN: NAOMIE CAICEDO PCP: TITA HUBER MD REPORT IS CONFIDENTIAL AND NOT TO BE RELEASED WITHOUT AUTHORIZATION [address] [address] Signed blue; inferior aspect of the specimen = green; and posterior = black. The specimen is sectioned from lateral to medial into 20 slices to reveal two cavities containing gelatinous, payan to dark red material. The first cavity (slice 12) is 1.5 x 1.4 x 0.9 cm and has a silver, metallic ny shaped biopsy marker. The cavity is located at approximately the 4 o'clock position, 1.8 cm from the inferior margin, 3.5 cm from the deep margin, 3.7 cm from the skin, 4.6 cm from the nipple, and 9.6 cm from the superior margin. The second cavity (slice 13) is 1.6 x 1.5 x 1.0 cm and has a silver metallic biopsy marker. The cavity is located at approximately the 3 o'clock position, 2.7 cm from the deep margin, 2.7 cm from the inferior margin, 3.7 cm from the skin, 4.8 cm from the superior margin, and 5.3 cm from the nipple. The remaining parenchyma is comprised of payan-white fibroglandular and yellow fibrofatty tissue. Fibroglandular tissue comprises approximately 5% of the remaining parenchyma and has multiple granular areas. An additional discrete mass/lesion is not grossly identified. The specimen has multiple, focal areas of brown, somewhat fibrous tissue consistent with possible muscle attached to the deep surface. The possible muscle is grossly unremarkable. The lateral portion of the specimen is palpated for lymph nodes and no lymph nodes are grossly identified. Side Show Entertainer sections are submitted as follows: A1 red skin lesion A2 first cavity biopsy clip (slice 12) A3-A5 nearest inferior margin to first cavity (slice 12) A6 nearest skin to first cavity (slice 12) A7 nearest deep margin to first cavity (slice 12) A8 nearest superior margin to first cavity (slice 12) A9 second cavity biopsy clip (slice 13) A10 second cavity (slice 13) A11 nearest deep margin to second cavity (slice 13) A12 nearest inferior margin to second cavity (slice 13) A13 nearest superior margin to second cavity (slice 13) A14 possible muscle nearest both cavities (slice 11 and 12) A15 nipple and areolar complex (slice 11) A16-A17 granular fibroglandular area (slice 9 and slice 11 respectively) A18 remaining parenchyma (slice 5 and 17 respectively) Cold ischemic time: Grossly indeterminate due to lack of information Formalin fixation time: Between 6 and 72 hours AI (under the direct supervision of a pathologist) PATIENT NAME: JACKIE GALLO PATHOLOGY DATE OF : 41 REPORT #: [id number] PHYSICIAN: NAOMIE PATHOLOGY PCP: TITA HUBER MD REPORT IS CONFIDENTIAL AND NOT TO BE RELEASED WITHOUT AUTHORIZATION [facility] [address] [place], [place] [address] Signed Per request by Dr. Beauchamp the case is revisited. A grossly definitive previous lumpectomy site is not identified, however a 3.0 x 3.0 x 2.9 cm area of slight hemorrhage is identified and slices 8-9. The area of hemorrhage is without a grossly definitive cavity or mass/lesion. An additional discrete mass/lesion is not grossly identified. Represented sections are submitted as follows: A19-A20 sections between the 2 cavities A21-A22 hemorrhagic area A23 upper outer quadrant (slice 5) A24 lower outer quadrant (slice 6) A25 upper inner quadrant (slice 16) A26 lower inner quadrant (slice 15) The Gross Description was prepared using a voice recognition system. The report was reviewed for accuracy; however, sound-alike word errors, addition and/or deletions may occur. If there is any question about this report, please contact Client Services. PERFORMING LABORATORY: The technical component was performed by [facility], [address] [place] [id number] ([employer] Roboticist: Stefanie Gomez MD; CLIA# [id number]). Professional interpretation was performed by [facility], [address] [facility] [address] [place] [id number] (IA# [id number]). Diagnostician: Jocelyn Beauchamp MD Pathologist Electronically Signed 06/10/2021 Copies: ~ PATIENT NAME: JACKIE GALLO PATHOLOGY DATE OF : 41 REPORT #: [id number] PHYSICIAN: NAOMIE CAICEDO PCP: TITA HUBER MD REPORT IS CONFIDENTIAL AND NOT TO BE RELEASED WITHOUT AUTHORIZATION
== END 2021-06-03 11:30 | disposition home or self-care (01) ==
LOC: DS 05:55 → MS 05:55 → DS 06:45 → MS 13:35 → DS 13:35 → MS 06-03 11:30 → DS 06-03 11:30 → MS 06-03 11:30
PROVIDERS: ADMIT Surgery; ATTEND Surgery
PROC: 0HTU0ZZ Resection of Left Breast, Open Approach (ICD-10-PCS; principal; 2021-06-02 06:45)
DX: C50.812 Malignant neoplasm of overlapping sites of left female breast (principal); Z17.0 Estrogen receptor positive status [ER+]; I10 Essential (primary) hypertension; E11.9 Type 2 diabetes mellitus without complications; Z88.0 Allergy status to penicillin; Z88.1 Allergy status to other antibiotic agents; Z91.040 Latex allergy status
CPT/HCPCS: 00404; 80048; 85025; 88309; 88341; 88342; 96372; G0378; J0330; J1100; J1644; J1885; J2250; J2270; J2405; J2704; J2765; J3010; J7121; Q9968

== ENCOUNTER 2021-08-04 11:53 | Day surgery (SDC) | payer MEDICARE, OTHER ==
[~2021-08-04] VITALS: Ht 312.4 cm; Wt 59.5 kg
[~2021-08-04 11:53] MED LIST changes: +ACETAMINOPHEN500 MG PO; +ENDOCET 7.5-321 EACH PO; +MOTRIN IB200 MG PO; +NORVASC5 MG PO
--- NOTE | 2021-08-04 13:35 | NUR ---
08/04/21 1335 Yolanda Sanchez 1331 PATIENT ARRIVES TO PACU AWAKE BUT VERY DROWSY. RESP EVEN AND UNLABORED, NC AT 2 LITERS. DENIES PAIN OR NAUSEA. SLEEPING WHEN NOT STIMULATED.
--- NOTE | 2021-08-04 15:06 | OR ---
[facility] [address] [place], [place] [address] Signed DATE OF OPERATION: 08/04/2021 SURGEON: Shonda Reid MD PREOPERATIVE DIAGNOSES: Abnormal PET scan rectosigmoid. POSTOPERATIVE DIAGNOSES: 1. Sigmoid diverticulosis. 2. Small polyps x3 (cecum and sigmoid). PROCEDURE: Total colonoscopy to cecum with cold morcellation polypectomy x3. ANESTHESIA: Intravenous sedation, fentanyl 100 mcg and Versed 5 mg. INDICATION: This 76-year-old white woman is a patient of Dr. Tima Kahn, who was treated by sd for breast cancer for which a partial mastectomy was performed, but no radiation therapy operation refused any further treatment. She had a prompt recurrence of the breast cancer requiring left modified radical mastectomy. There is no evidence of metastatic disease to lymph nodes. Her mastectomy was on June 02, 2021. Two foci of cancer were noted both 16 and 15 mm in size. This was considered initially a mucinous tumor with associated DCIS. She did undergo a PET scan on July 15, 2021 with uptake in the rectosigmoid. She has no family history of colon cancer and no symptoms of the colon currently. She is admitted to undergo colonoscopy based on this PET scan findings. She understands the risks of bleeding, infection, and perforation. FINDINGS: The prep was good. Complete colonoscopy was undertaken of the cecum without question. She had very small polypoid changes in the cecum, which were excised (two separate foci) as well as a small polyp of the sigmoid, which was likely hyperplastic, this was excised as well. Diverticula were noted of the sigmoid related to diverticulosis most likely requiring change of the colonoscope to a pediatric colonoscope and it was accomplished safely incompletely. There was no evidence of overt malignancy of the colon or rectum. Electronically Signed By: SHONDA REID MD 08/04/21 1506 PATIENT NAME: JACKIE GALLO OPERATIVE REPORT DATE OF : 41 REPORT #: [id number] PHYSICIAN: SHONDA REID MD PCP: TITA KAHN MD REPORT IS CONFIDENTIAL AND NOT TO BE RELEASED WITHOUT AUTHORIZATION [facility] [address] [place], [place] [address] Signed DESCRIPTION OF PROCEDURE: The patient was brought to the endoscopy suite and placed in lateral decubitus position, given intravenous sedation to the point of slurred speech and nystagmus. Full cardiopulmonary monitoring was maintained. Digital rectal examination was normal. An Olympus video colonoscope was passed in the rectum and manipulated beyond the sigmoid where angulation deformity was rather significant. Various maneuvers were undertaken to pass the scope, but this was not forthcoming. The patient did have some relative bradycardia with heart rate down to 39 with a systolic pressure of 79, and the scope was repositioned and she was allowed to regain her natural hemodynamics. She did not require atropine or other interventions. She was given additional IV fluid. The scope was withdrawn and a pediatric colonoscope obtained. Passage of the pediatric scope was quite a bit more well-tolerated and certainly successful passing the scope ultimately to the cecum. The ileocecal valve and appendiceal orifice were normal. The mucosa of the cecum showed either hyperplastic changes or adenomatous changes in any case, this area was thoroughly and ultimately biopsied and ablated. The scope was withdrawn further noting diverticulosis of the left colon and sigmoid and a small probably hyperplastic polyp within the mid sigmoid, this was excised as well. Further withdrawal of scope showed no abnormality of the rectosigmoid or rectum specifically no neoplasm or inflammatory lesion that could be identified. The scope was removed and the patient was taken to the recovery room in good condition. CONCLUDING DIAGNOSIS: Diverticulosis and small polyps x3. No evidence of lesion to account for PET scan. PLAN: She will return to the ongoing care of Dr. Tima Kahn, also Dr. Ceja. MD TRANG Gordillo/MODL /[id number] cc: MD Andrews Tejeda MD Electronically Signed By: SHONDA REID MD 08/04/21 1506 PATIENT NAME: JACKIE GALLO OPERATIVE REPORT DATE OF : 41 REPORT #: [id number] PHYSICIAN: SHONDA REID MD PCP: TITA KAHN MD REPORT IS CONFIDENTIAL AND NOT TO BE RELEASED WITHOUT AUTHORIZATION [facility] [address] [facility] [place] [address] Signed Copies: TITA KAHN MD, ROBERT C MD ~ Electronically Signed By: SHONDA REID MD 08/04/21 1506 PATIENT NAME: JACKIE GALLO OPERATIVE REPORT DATE OF : 41 REPORT #: [id number] PHYSICIAN: SHONDA REID MD PCP: TITA KAHN MD REPORT IS CONFIDENTIAL AND NOT TO BE RELEASED WITHOUT AUTHORIZATION
--- NOTE | 2021-08-05 14:54 | PATH ---
[facility] [address] [place], [place] [address] Signed SPECIMEN(S): A CECUM POLYP SPECIMEN(S): B SIGMOID POLYP SPECIMEN SOURCE: A. CECUM POLYP B. SIGMOID POLYP CLINICAL HISTORY: Colonoscopy. Abnormal radionuclide scan. Postop: Polyps x 3, diverticulosis. MICROSCOPIC DESCRIPTION: Histologic sections of all submitted blocks are examined by light microscopy. These findings, together with the gross examination, support the pathologic diagnosis. FINAL PATHOLOGIC DIAGNOSIS: A. Colon, cecum, polypectomy: - Hyperplastic polyp, one fragment. - Additional fragments of colonic epithelium are within normal limits. - There is no evidence of dysplasia or malignancy. B. Colon, sigmoid, polypectomy: - No significant histopathology. - There is no evidence of neoplasia. COMMENT: Regarding specimen A, the features of sessile serrated polyp/adenoma are not present in these sections. Regarding specimen B, the sections from the specimen are architecturally normal without crypt distortion. There is no acute or chronic inflammation. There are no abnormal infiltrates. There is no evidence of inflammatory, hyperplastic or adenomatous polyps. TWK:emh:C2NR GROSS DESCRIPTION: Two specimens are received in two containers, labeled "JM." A. The specimen, labeled "JM, cecum polyp," is received in formalin and consists of six payan soft tissue fragments that measure 0.1-0.2 cm in greatest dimension. The specimen is entirely submitted in cassette (A1). B. The specimen, labeled "JM, sigmoid colon polyp," is received in formalin and consists of one payan soft tissue fragment that measures 0.2 cm in greatest dimension. The specimen is entirely PATIENT NAME: JACKIE GALLO PATHOLOGY DATE OF : 41 REPORT #: [id number] PHYSICIAN: NAOMIE CAICEDO PCP: TITA HUBER MD REPORT IS CONFIDENTIAL AND NOT TO BE RELEASED WITHOUT AUTHORIZATION [facility] [address] [place], [place] [address] Signed submitted in cassette (B1). JS (under the direct supervision of a pathologist) The Gross Description was prepared using a voice recognition system. The report was reviewed for accuracy; however, sound-alike word errors, addition and/or deletions may occur. If there is any question about this report, please contact Client Services. PERFORMING LABORATORY: The technical component was performed by [employer], [address] [place] [address] (Speed Reading Teacher: Stefanie Gomez MD; CLIA# [id number]). [facility], [address] [place] [address]. Diagnostician: Jaylon Cope MD Pathologist Electronically Signed 08/05/2021 Copies: ~ PATIENT NAME: JACKIE GALLO PATHOLOGY DATE OF : 41 REPORT #: [id number] PHYSICIAN: NAOMIE PATHOLOGY PCP: TITA HUBER MD REPORT IS CONFIDENTIAL AND NOT TO BE RELEASED WITHOUT AUTHORIZATION
== END 2021-08-04 14:00 | disposition home or self-care (01) ==
LOC: OPS 11:53 → DS 11:53 → OPS 13:00 → DS 13:00 → OPS 14:00
PROVIDERS: ATTEND Surgery
PROC: 0DBN8ZX Excision of Sigmoid Colon, Via Natural or Artificial Opening Endoscopic, Diagnostic (ICD-10-PCS; 2021-08-04)
PROC: 0DBH8ZX Excision of Cecum, Via Natural or Artificial Opening Endoscopic, Diagnostic (ICD-10-PCS; principal; 2021-08-04 13:00)
DX: K63.5 Polyp of colon (principal); K57.30 Diverticulosis of large intestine without perforation or abscess without bleeding; C50.112 Malignant neoplasm of central portion of left female breast; I10 Essential (primary) hypertension; Z88.0 Allergy status to penicillin; Z88.1 Allergy status to other antibiotic agents; Z91.040 Latex allergy status
CPT/HCPCS: 99153; G0500; J2250; J3010; J7121

== ENCOUNTER 2023-08-22 13:30 | Emergency (ER) | payer MEDICARE, OTHER ==
[~2023-08-22] VITALS: Ht 312.4 cm; Wt 63.0 kg
[2023-08-22] MEDS ORDERED: AMLODIPINE BESYL5 MG PO (15:34)
[2023-08-22] MEDS ORDERED: ANASTROZOLE1 MG PO (15:34)
[2023-08-22] MEDS ORDERED: CEPHALEXIN500 MG PO (15:34)
[2023-08-22 15:37] LABS: BILIRUBIN, URINE NEGATIVE (negative); BLOOD/HGB, URINE TRACE-I (Negative); KETONE, URINE NEGATIVE (Negative); LEUK ESTERASE, URINE NEGATIVE (negative); NITRITE, URINE NEGATIVE (negative); PH, URINE 5.5 (5-7)
[2023-08-22 15:45] LABS: CRYSTALS, URINE NONE SEEN (0-1+); EPITHELIAL CELLS, URINE 0 /lpf (0-1+); WHITE BLOOD CELLS, URINE 0-1 /HPF (0-5)
[2023-08-22 15:46] LABS: BACTERIA, URINE RARE /hpf (negative); CASTS, URINE NONE SEEN \\lpf; COLLECTION TYPE, URINE CLEAN CATCH; REFLEX CULTURE, URINE No (No)
[2023-08-22 16:35] VITALS: BP 159/70
== END 2023-08-22 16:35 | disposition home or self-care (01) ==
LOC: ED 13:30
PROVIDERS: Emergency Medicine
DX: R30.0 Dysuria (principal); C50.912 Malignant neoplasm of unspecified site of left female breast; I10 Essential (primary) hypertension; E11.9 Type 2 diabetes mellitus without complications; Z79.899 Other long term (current) drug therapy; Z79.84 Long term (current) use of oral hypoglycemic drugs; Z79.811 Long term (current) use of aromatase inhibitors; Z88.0 Allergy status to penicillin; Z88.8 Allergy status to other drugs, medicaments and biological substances; Z91.040 Latex allergy status
CPT/HCPCS: 81001; 99283